=== PATIENT | male | born 1995 | race Caucasian/White ===

== ENCOUNTER 2020-11-03 20:39 | Emergency (ER) | payer OTHER ==
[~2020-11-03] VITALS: Ht 185.4 cm; Wt 114.3 kg
[~2020-11-03 20:39] MED LIST: BUSPIRONE HCL15 MG PO; SERTRALINE HCL50 MG PO
== END 2020-11-03 21:40 | disposition home or self-care (01) ==
LOC: ED 20:39
DX: S81.811A Laceration without foreign body, right lower leg, initial encounter (principal); W22.8XXA Striking against or struck by other objects, initial encounter
CPT/HCPCS: 12002; 99282-25